=== PATIENT | male | born 1940 | race Caucasian/White ===

== ENCOUNTER 2017-01-04 11:00 | Inpatient (IN) | payer MEDICARE, OTHER ==
[~2017-01-04] VITALS: Ht 177.8 cm; Wt 102.9 kg
--- NOTE | ~2017-01-04 | DS ---
PATIENT'S NAME: ANAYELI BOONE [facility] AGE: 76 Y [address] ROOM: [place] [address] LOCATION: [facility] [place] ADMIT DATE: 01/08/2017 Discharge Summary DISCHARGE DATE: 01/11/2017 FAMILY PHYSICIAN: Mulugeta Blandon MD ATTENDING PHYSICIAN: Alla Lopez PRIMARY DIAGNOSIS: Osteoarthritis, right hip. SECONDARY DIAGNOSES: 1. History of polio. 2. Polymyalgia rheumatica. PROCEDURE PERFORMED: Right total hip arthroplasty. HISTORY: The patient is a 76-year-old male, who presents with advanced right hip degenerative joint disease and associated severely compromised activities of daily living. The patient has decided to proceed with total right hip arthroplasty after having been thoroughly counseled regarding the risks, benefits, limitations, and alternatives. Please refer to the outpatient clinic notes and admission history and physical for this patient. HOSPITAL COURSE: The patient underwent a total right hip arthroplasty on 01/08/2017 without complications. Spinal anesthesia plus subcutaneous and periarticular local anesthesia was utilized. The patient received 24 hours of perioperative prophylactic antibiotics and remained hemodynamically stable and neurovascularly intact throughout the entire hospital course. The postoperative prophylactic deep venous thrombosis prophylaxis consisted of Xarelto 10 mg, early mobilization, and pneumatic compression devices. Daily physical therapy for gait training, transfer training, and reinforcement of hip dislocation precautions were received. The patient progressed well in physical therapy. On the date of discharge, the incision at the hip was healing well and showed no signs of infection. DISPOSITION: Home. DISCHARGE ACTIVITY: The patient is to bear weight as tolerated with strict hip dislocation precautions as instructed. There are to be no dressing changes. Dr. Lopez is to be notified immediately if there is any increased pain, fevers, chills, erythema, or drainage. DISCHARGE MEDICATIONS: Include: 1. Xarelto 10 mg, take 1 tablet p.o. daily for DVT prevention. 2. Valium 5 mg, take 1/2 tablet to 1 tablet every 6 hours as needed for muscle spasms. 3. Dilaudid 2 mg, take 1 tablet p.o. every 2 hours as needed for pain. PATIENT'S NAME: ANAYELI BOONE [facility] AGE: 76 Y [address] ROOM: [place] [address] LOCATION: [facility] [place] ADMIT DATE: 01/08/2017 Discharge Summary DISCHARGE DATE: 01/11/2017 FAMILY PHYSICIAN: Mulugeta Blandon MD ATTENDING PHYSICIAN: Alla Lopez FOLLOWUP: Followup appointment is to be with Dr. Lopez in one week subsequent to dismissal from the hospital (01/15/2017) for initial postoperative evaluation. DILIP QUINONES FOR ALLA LOPEZ MD TLB/modl /[id number] d: 01/13/17 1229 t: 01/15/17 1040, DISCHARGE SUMMARY
--- NOTE | ~2017-01-04 | OR ---
PATIENT'S NAME: ANAYELI BOONE [facility] AGE: 76 Y [address] ROOM: [place] [address] LOCATION: [facility] ADMIT DATE: 01/08/2017 OR/Procedure Report DISCHARGE DATE: FAMILY PHYSICIAN: Mulugeta Blandon MD ATTENDING PHYSICIAN: ALLA LOPEZ SURGEON: Alla Lopez MD MUSEUM GUIDE: 1. Kirk Marques CST/MELISSA. 2. Alla Bell. DATE OF PROCEDURE: 01/08/2017 PRE-OP DIAGNOSIS: Primary osteoarthritis, right hip. POST-OP DIAGNOSIS: Primary osteoarthritis, right hip. OPERATION: Right total hip arthroplasty. ANESTHESIA: Spinal anesthesia plus subcutaneous and periarticular local anesthesia (ropivacaine with epinephrine). ESTIMATED BLOOD LOSS: Approximately 250 mL. DRAIN: None. SPECIMEN: None. COMPLICATIONS: None. IMPLANTS: 1. [place] Trident Tritanium size 58 mm hemispherical acetabular shell with 1 dome hole cover and 2 dome screws. 2. [place] X3 neutral acetabular polyethylene liner with 36 mm inner diameter. 3. DePuy Hardin size 7, high offset, uncemented femoral component. 4. A 36 mm diameter metallic femoral head with -2 mm neck length. INDICATION FOR SURGERY: The patient is a 76-year-old male, who presents with advanced right hip primary osteoarthritis and associated severely compromised activities of daily living. The patient has decided to proceed with hip replacement after having been thoroughly counseled regarding the associated risks, benefits, and limitations. We have specifically reviewed the risks and implications of infection, deep venous thrombosis, pulmonary embolism, mortality, neurovascular complications, blood transfusion (and associated potential for disease transmission or transfusion reaction), stiffness, instability, leg length discrepancy, mechanical deterioration of the components (due to wear and to loosening), and the potential need for PATIENT'S NAME: ANAYELI BOONE [facility] AGE: 76 Y [address] ROOM: [place] [address] LOCATION: [facility] ADMIT DATE: 01/08/2017 OR/Procedure Report DISCHARGE DATE: FAMILY PHYSICIAN: Mulugeta Blandon MD ATTENDING PHYSICIAN: ALLA LOPEZ revision. DESCRIPTION OF PROCEDURE: The patient was positioned in a lateral decubitus position with the right side up after administration of anesthesia and prophylactic antibiotics. An axillary roll was placed and the non-operative leg was well padded. The pelvis was locked perpendicularly to the floor on a pegboard. The right hip and entire operative extremity were prepped and draped with vigilant sterile technique. The patient's name as well as the intended operative side and procedure were confirmed with a verbal time-out involving myself, the circulating nurse, the scrub nurse, and the anesthesiologist. The right hip was approached through a standard posterolateral incision. The fascia fidel and the gluteus jennifer fascia were sharply divided in line with the overlying skin incision. The sciatic nerve was identified and was vigilantly protected throughout the entire case. The short external rotators and posterior capsule were divided from their respective femoral insertions and tagged with four #1 Ethibond sutures for later repair. The hip was posteriorly dislocated with combined flexion, adduction, and internal rotation. The femoral neck osteotomy was performed with an oscillating saw. Inspection of the femoral head demonstrated full-thickness loss of articular cartilage throughout its weightbearing surface. There was no femoral head collapse. There was a large osteophyte at the periphery of the femoral head. Circumferential acetabular exposure was obtained. Examination of acetabulum demonstrated full-thickness loss of articular cartilage throughout the acetabular dome. There was a large medial acetabular osteophyte. There was no dysplasia. There were no loose bodies. There was a large effusion consisting of benign-appearing translucent synovial fluid. Remnants of the acetabular labrum were sharply thoroughly excised. The acetabulum was sequentially progressively reamed up to 57 mm with hemispherical power reamers. The final acetabular shell was impacted into position in 20 degrees of anteversion and 45 degrees of inclination. An excellent press-fit was obtained. Due to the fact there was moderately severely osteopenia, I placed 2 dome screws for supplemental fixation. Both of these obtained excellent purchase. A neutral trial liner was inserted. Attention was next focused upon femoral preparation. The femoral canal initiator was utilized. The femoral canal was reamed by hand to a size 4 and subsequently on power to a size 7. The size 6 and 7 reamers tightly engaged the endosteal cortex of the proximal femur. The femoral canal was subsequently sequentially progressively broached up to a size 7. The size 7 broach obtained excellent axial and rotational stability. Trial reductions PATIENT'S NAME: ANAYELI BOONE [facility] AGE: 76 Y [address] ROOM: [id number] [place], [place] [address] LOCATION: [facility] ADMIT DATE: 01/08/2017 OR/Procedure Report DISCHARGE DATE: FAMILY PHYSICIAN: Mulugeta Blandon MD ATTENDING PHYSICIAN: ALLA LOPEZ with the above specified construct yielded acceptable stability and acceptable reproduction of leg length and offset. All trial components were removed. The final acetabular liner was inserted with excellent circumferential visualization of its locking mechanism to assure adequate deployment. The final femoral component was impacted into position. The femoral component achieved excellent axial and rotational stability. The trunnion of the femoral component was vigilantly protected prior to placement of the femoral head. The trunnion of the femoral component was thoroughly cleaned and dried prior to placement of the femoral head. The incision was thoroughly irrigated with bacteriostatic pulsatile saline lavage multiple times throughout the case. The entire joint space was thoroughly inspected and thoroughly irrigated to assure that there was no residual debris of any sort. A final reduction was then performed. After final reduction, the hip could be firmly externally rotated in full extension and zero degrees of abduction without anterior subluxation. In neutral rotation and zero degrees of abduction, the hip could be firmly flexed to 120 degrees without instability. At 90 degrees of flexion and zero degrees abduction, the hip could be internally rotated to 65 degrees before there was any hint of posterior subluxation. The posterior capsule and short external rotators were repaired through two drill holes in the posterior aspect of the greater trochanter. The fascia fidel and gluteus jennifer fascia were closed with multiple simple and [id number] interrupted # 1 Ethibond and #1 Vicryl sutures. Subcutaneous tissues were thoroughly re-irrigated with bacteriostatic pulsatile saline lavage. Subcutaneous tissues were re-approximated with simple buried interrupted #0 Vicryl sutures. The skin was closed with superficial buried interrupted 2-0 Vicryl sutures followed by a running subcuticular 3-0 Monocryl suture, followed by Octylseal, followed by Steri- Strips with benzoin, followed by an occlusive Mepilex dressing. There were no intra-operative complications. MD DAINA BURDICK/erica PATIENT'S NAME: ANAYELI BOONE [facility] AGE: 76 Y [address] ROOM: [address] [address] LOCATION: [facility] ADMIT DATE: 01/08/2017 OR/Procedure Report DISCHARGE DATE: FAMILY PHYSICIAN: Mulugeta Blandon MD ATTENDING PHYSICIAN: ALLA LOPEZ /[id number] d: 01/09/174 t: 01/14/17 2222, OPERATIVE SUMMARY
[~2017-01-04 11:00] MED LIST: ALEVE220 M1 PO; COLACE100 MG PO; FLOMAX0.4 MG PO; KRILL OIL 1,001 EAC1 PO; MELATIN3 MG PO; MIRALAX17 GM PO; THERA-VITE W/ B1 TAB PO; TOPROL XL 5050 MG PO; TYLENOL EXTRA500 MG PO; TYLENOL PM EX-1 EACH PO; VALIUM5 MG PO; VITAMIN B-121000 MCG PO
[2017-01-04] MEDS ORDERED: DELTASONE5 MG PO (13:47)
[2017-01-04] MEDS ORDERED: DELTASONE10 MG PO (13:48)
[2017-01-04] MEDS ORDERED: FOLIC ACID1 MG PO (13:48)
[2017-01-04] MEDS ORDERED: PLAQUENIL200 MG PO (13:49)
[2017-01-04] MEDS ORDERED: METHOTREXATE (2.5 MG PO (13:51)
--- NOTE | 2017-01-08 14:42 | NUR ---
Maida, Nurse Navigator called. She spoke to patient and then [address] MARIANO. [facility] will be here Wednesday for patient to sign some papers. Then we will assess Wednesday as to whether he can go home, go to [facility] respite or would need SNF.
--- NOTE | 2017-01-08 14:44 | NUR ---
Introduced self/role to patient and brother at bedside. Patient has equipment from prior surgery. Lives alone in [place]. After last hip surgery, used respite room at [facility] prior to return home. May be interested in this option again. Gave me permission to contact [facility] to see if repite room available. Per Destiny at [facility], they have a room available and would be able to admit Sepinoza if he chooses this option on Wednesday. They will come up Wednesday to sign paperwork. Will follow and see what his needs are and progress with therapy. Reviewed use of spirometer and encouraged waving of his feet when able. Has BILL hose and foot pumps in place bilaterally.
--- NOTE | 2017-01-08 15:51 | NUR ---
Significant Event: AOx3. VSS. CSM WNL. Up with 1 assist to chair. Mepilex dressing dry and intact. Dilaudid 2mg tab given for anticipated pain. On room air. WBAT. NO nausea. Had regular meal. Follow up:
--- NOTE | 2017-01-09 04:38 | NUR ---
Patient alert and oriented x3, very pleasant and cooperative, csm with in normal limits dressing clean dry and intact to hip, ice in place to hip, ambulates well one assist with walker and gaitbelt, has rested well tonight and pain has been undercontrol
[2017-01-09 04:51] LABS: HEMATOCRIT 30.7 % (37.0-53.0); HEMOGLOBIN 10.2 g/dL (11.0-16.0)
--- NOTE | 2017-01-09 16:12 | NUR ---
Significant Event: pt alert and oriented. up in the room with 1 assist stand by does well. dressing to rt hip intact. tylenol and dilaudid for pain.last at 1221. voids well. no bm today ice to hip.
--- NOTE | 2017-01-09 16:59 | NUR ---
pt moved to [facility] due to unit closing. cassandra given report on pt
--- NOTE | 2017-01-10 03:27 | NUR ---
Shift Summary: Patient can ambulate with one assist/walker. Gave last 2mg Dilaudid at 0308. Had a Valium at 0002. Voiding without difficulty. Last BM on the 4th. Tolerating regular diet well. Uncertain if patient going home today. Does not have any help at home.
--- NOTE | 2017-01-10 13:49 | NUR ---
Patient is appropriate for DC from P.T. standpoint. He would benefit from home health therapy as he lives alone. He does have neighbors that check in on him he say's regularly. Rio Rodarte, PT
--- NOTE | 2017-01-10 17:01 | NUR ---
Is A/O.Has SL in Rt.wrist.Rt.hip meriplex drsg is D/I.Has had ice to Rt hip at intervals.Has been up in chair & amb with walker & 1 assist.Is to go to [facility] [address] tomorrow for awhile.Eating & drinking well.Voiding ok.Pleasant.
--- NOTE | 2017-01-11 03:34 | NUR ---
Shift Summary: Patient can ambulate with standby assist. Has difficulty getting out of bed and [id number]. Good pain control with 2mg Dilaudid, last dose at 2057. Tolerating regular diet well. Voiding without difficulty. Has BM last night. Plans to go to [facility] [address] today.
--- NOTE | 2017-01-11 09:50 | NUR ---
Introduced self/role to patient. He lives alone in [place], planning to go to [facility] assisted living today. However he isn't sure on transportation. I will see if [facility] can come and get him otherwise there is the taxi service or [employer] bus. He denied any other needs or barriers to discharge. 954 Spoke to charge nurse Agueda, hospitalist just needs to round so will shot for after lunch. Called [facility] and talked to their charge nurse Agueda. They can come and get him at 1300, have orders from yesterday. Informed [facility] charge Agueda of the time. Ritu, patients nurse, and Shirley Stokes aware of discharge time. I followed up with patient.
--- NOTE | 2017-01-11 11:59 | NUR ---
Significant Event: Patient up with therapy and tolerates well. Patient is a standby assist with a front wheeled walker. Dilaudid given for pain with scheduled tylenol at 1055--relief noted. Patient does have ice to incision and BILL hose on. Plan is for patient to transfer [facility] today at 1300. Last BM noted on January 10, and patient is on miralax and colace to help with BM while on pain medication. Ate well for breakfast and waiting for lunch. Follow up: Continue to monitor. Transfer to [facility] at 1300.
[2017-01-11] MEDS ORDERED: COLACE100 MG PO (13:06)
[2017-01-11] MEDS ORDERED: MIRALAX17 GM PO (13:08)
[2017-01-11] MEDS ORDERED: XARELTO10 MG PO (13:11)
[2017-01-11] MEDS ORDERED: VALIUM5 MG PO (13:12)
[2017-01-11] MEDS ORDERED: DILAUDID 2MG(HYD2 MG PO (13:13)
--- NOTE | 2017-01-11 14:38 | NUR ---
D:Orders received for patient to be dismissed. I:Dismissal instructions were prepared and reviewed with the patient. The following information was reviewed with the patient: diet and activity recommendations for home, dressing/incisional care for home, home medications/new prescription medications, abnormal s/s to monitor for and to report to MD if they occur, and plans for follow up appointment with Dr. Aragon next week. Xuan teaching given to and reviewed with the patient on the following topics: After Total Hip Replacement at [facility], Preventing DVT's After Surgery, Colace, Miralax, Xarelto, and Dilaudid. R:The patient verbalized understanding of above teaching. All information was sent in packet to go to [employer]. The patient signed the paperwork and was given his prescriptions. P:The patient's primary nurse was informed that the dismissal teaching had been completed. [facility] [employer] staff member was present to transport pt. Pt will be dismissed shortly. Francis SUAREZ
== END 2017-01-11 14:05 | disposition disaster alternative care site (69) | DRG 470 ==
LOC: G3N 01-08 06:06 → GMSU 01-09 17:02
PROVIDERS: ADMIT Orthopaedic Surgery
PROC: 0SR902A Replacement of Right Hip Joint with Metal on Polyethylene Synthetic Substitute, Uncemented, Open Approach (ICD-10-PCS; principal; 2017-01-08)
DX: M16.11 Unilateral primary osteoarthritis, right hip (principal); E66.9 Obesity, unspecified; Z68.32 Body mass index [BMI] 32.0-32.9, adult
CPT/HCPCS: C1713; C1776; J0690; J1100; J1885; J2250; J2405; J2795; J7030; J7120; J7512